=== PATIENT | male | born 1955 | race Caucasian/White ===

== ENCOUNTER 2021-07-08 15:35 | Outpatient (CLI) | payer BC, MEDICARE | END 2021-07-08 15:36 | disposition home or self-care (01) | LOC: LABBT 15:35 | PROVIDERS: ATTEND Thoracic Surgery (Cardiothoracic Vascular Surgery) | DX: Z01.812 Encounter for preprocedural laboratory examination (principal); I25.10 Atherosclerotic heart disease of native coronary artery without angina pectoris; I48.91 Unspecified atrial fibrillation; Z20.822 Contact with and (suspected) exposure to COVID-19 | CPT/HCPCS: 80048; 85027; 86850; 86900; 86901; U0003; U0005 ==

== ENCOUNTER 2021-07-08 16:00 | Inpatient (IN) | payer BC, MEDICARE ==
[2021-07-08 16:47] LABS: Hemoglobin 13.5 g/dL (13.5-17.5); Mean Corpuscular HGB CONC 31.5 g/dL (32.0-36.0); Mean Corpuscular Hemoglobin 26.9 pg (27.0-33.0); Mean Corpuscular Volume 85.4 fl (81.2-95.1); Mean Platelet Volume 9.2 fl (7.4-10.4); Platelet Count 339 10x3/uL (150-450); Red Blood Cell (RBC) Count 5.01 10x6/uL (4.32-5.72); White Blood Cell (WBC) Count 10.4 10x3/uL (3.5-10.5)
[2021-07-08 17:17] LABS: Anion Gap 14 mmol/L (10-20); BUN (Urea Nitrogen) 20 mg/dL (8.4-25.7); Calc. Creatinine Clearance 0 mL/min (70-130); Carbon Dioxide 24 mmol/L (23-31); Chloride 107 mmol/L (98-107); Glucose 173 mg/dL (80-115); Potassium 4.3 mmol/L (3.5-5.1); Sodium 141 mmol/L (136-145)
[2021-07-09 08:34] VITALS: BMI 29.0
[2021-07-09 10:48] LABS: SARS-CoV-2 PCR by NAA Not Detected (NotDetected)
[2021-07-16] MEDS ORDERED: ceFAZolin 2 GM/DEX 5% 100 ML BAG ONE (06:15)
[2021-07-16] MEDS ORDERED: Albumin 5% 500 ML ONE (06:32)
[2021-07-16] MEDS ORDERED: Heparin 10,000 UNITS/1 ML VIAL 30,000 UNITS in Sodium Chloride 0.9% 1,000 ML FS SCH (07:00)
[2021-07-16] MEDS ORDERED: Dexmedetomidine 200 MCG/2 ML VIAL ONE (07:12)
[2021-07-16] MEDS ORDERED: Fentanyl 250 MCG/5 ML VIAL ONE (07:12)
[2021-07-16] MEDS ORDERED: Midazolam HCl 5 mg/5 ml Vial ONE (07:12)
[2021-07-16] MEDS ORDERED: Midazolam HCl 2 mg/2 ml Vial ONE (07:28)
[2021-07-16] MEDS ORDERED: Ondansetron ODT 4 MG TAB ONE (07:28)
[2021-07-16] MEDS ORDERED: Vecuronium 10 MG VIAL ONE (08:01)
[2021-07-16] MEDS ORDERED: Magnesium Sulfate 1 GM/2 ML VIAL ONE (08:01)
[2021-07-16] MEDS ORDERED: Lidocaine 2% PF 100 mg/5 ml Syringe ONE (08:01)
[2021-07-16] MEDS ORDERED: Calcium Chloride 1 GM/10 ML Abboject SYRINGE ONE (08:01)
[2021-07-16] MEDS ORDERED: Protamine Sulfate 250 MG/25 ML VIAL ONE (08:01)
[2021-07-16] MEDS ORDERED: PROPOFOL 200 MG/20 ML VIAL ONE ×2 (08:01)
[2021-07-16] MEDS ORDERED: Ondansetron PF 4 MG/2 ML Vial ONE (08:01)
[2021-07-16] MEDS ORDERED: Glycopyrrolate 0.2 MG/ML 5 ML SYRINGE ONE (08:01)
[2021-07-16] MEDS ORDERED: Lidocaine 1% PF 5 ML VIAL ONE (08:01)
[2021-07-16] MEDS ORDERED: Thrombin 5000 UNITS/5 ML VIAL ONE (08:01)
[2021-07-16] MEDS ORDERED: Nitroglycerin 50 MG/250 ML BOT ONE (08:01)
[2021-07-16] MEDS ORDERED: Potassium Chloride 60 MEQ/30 ML VIAL ONE (08:01)
[2021-07-16] MEDS ORDERED: Cardioplegic Soln 1,000 ML BAG ONE (08:01)
[2021-07-16] MEDS ORDERED: Aminocaproic Acid 5 GM/20 ML VIAL ONE (08:01)
[2021-07-16] MEDS ORDERED: Norepinephrine 4 MG/4 ML VIAL ONE (08:01)
[2021-07-16] MEDS ORDERED: Heparin 30,000 units/30 ml VIAL ONE (08:01)
[2021-07-16] MEDS ORDERED: Dexamethasone 20 MG/5 ML VIAL ONE (08:01)
[2021-07-16] MEDS ORDERED: Sodium Bicarb 50 MEQ/50 ML Abboject 8.4% SYRINGE ONE (08:01)
[2021-07-16] MEDS ORDERED: Heparin 5,000 UNITS/ML VIAL ONE (08:01)
[2021-07-16] MEDS ORDERED: Papaverine 60 MG/2 ML VIAL ONE (08:01)
[2021-07-16] MEDS ORDERED: SUGAMMADEX SODIUM 200 MG/2 ML VIAL ONE (09:14)
[2021-07-16] MEDS ORDERED: Potassium Chloride 20 MEQ/100 ML PREMIX BAG IVPB PRN (11:16)
[2021-07-16] MEDS ORDERED: Post-Op Insulin Drip Protocol IVPB ONE (11:16)
[2021-07-16] MEDS ORDERED: Acetaminophen 325 MG TAB PO PRN (11:16)
[2021-07-16] MEDS ORDERED: Promethazine HCl 25 MG/ML VIAL IM PRN (11:16)
[2021-07-16] MEDS ORDERED: Nitroglycerin 50 MG/250 ML BOT 250 ML IVPB PRN (11:16)
[2021-07-16] MEDS ORDERED: Guaifenesin DM 100-10/5 ML UDCUP PO PRN (11:16)
[2021-07-16] MEDS ORDERED: Mag-Al 1200 mg/1200 mg/30 ML UDCUP PO PRN (11:16)
[2021-07-16] MEDS ORDERED: Bisacodyl 5 MG TAB PO PRN (11:16)
[2021-07-16] MEDS ORDERED: Norepinephrine 8 MG/0.9% NS 250 ML IVPB PRN (11:16)
[2021-07-16] MEDS ORDERED: niCARdipine 25 MG in Sodium Chloride 0.9% 250 ML 250 ML IVPB PRN (11:16)
[2021-07-16] MEDS ORDERED: Hetastarch 6% 500 ML 500 ML IVPB PRN (11:16)
[2021-07-16] MEDS ORDERED: Fentanyl 100 MCG/2 ML VIAL SLOW IVP PRN (11:16)
[2021-07-16] MEDS ORDERED: hydrALAZINE 20 MG/ML VIAL SLOW IVP PRN (11:16)
[2021-07-16] MEDS ORDERED: Morphine 4 MG/ML VIAL SLOW IVP PRN (11:16)
[2021-07-16] MEDS ORDERED: Bisacodyl 10 MG SUPP PR PRN (11:16)
[2021-07-16] MEDS ORDERED: DOPamine 400 MG/D5W 250 ML 250 ML IVPB PRN (11:16)
[2021-07-16] MEDS ORDERED: Dextrose 50% Abboject 50 ML SYRINGE SLOW IVP PRN (11:45)
[2021-07-16] MEDS ORDERED: HUMULIN R 100 UNITS in Sodium Chloride 0.9% 100 ML IVPB SCH (11:45)
[2021-07-16] MEDS ORDERED: Dextrose 5% in Water 1,000 ML IV PRN (11:45)
[2021-07-16] MEDS ORDERED: Lantus 1000 UNITS/10 ML VIAL SC PRN (11:45)
[2021-07-16] MEDS: Lactated Ringer's 1,000 ML IV SCH (12:00)
[2021-07-16] MEDS ORDERED: Naloxone HCl 0.4 mg/ml Vial ONE (12:05)
[2021-07-16 12:21] LABS: #Basophils 0.1 thou/uL (0.0-0.2); #Eosinphils 0.3 thou/uL (0.0-0.7); #Lymphocytes 2.1 thou/uL (1.20-3.40); #Monocytes 1.2 thou/uL (0.11-0.59); #Neutrophils 16.1 thou/uL (1.40-6.50); %Basophils 0.4 % (0.0-1.0); %Eosinophils 1.5 % (0.0-10.0); %Lymphocytes 10.6 % (21.0-51.0); %Monocytes 6.1 % (0.0-10.0); %Neutrophils 81.4 % (42.0-75.0); Hemoglobin 11.8 g/dL (14.0-18.0); Mean Corpuscular HGB CONC 33.1 g/dL (32.0-36.0); Mean Corpuscular Hemoglobin 28.5 pg (27.0-31.0); Mean Corpuscular Volume 86.2 fL (78.0-98.0); Mean Platelet Volume 6.1 fL (7.4-10.4); Platelet Count 275 thou/uL (130-400); Red Blood Cell (RBC) Count 4.14 mill/uL (4.70-6.10); White Blood Cell (WBC) Count 19.7 thou/uL (4.8-10.8)
[2021-07-16] MEDS: Insulin Regular 300 UNITS/3 ML VIAL SC PRN (12:26)
[2021-07-16 12:32] LABS: INR-International Normal Ratio 1.2; Prothrombin Time 15.4 sec (12.0-14.7)
[2021-07-16 12:33] LABS: PTT 34.1 sec (22.9-36.1)
[2021-07-16 12:40] LABS: Anion Gap 11 mmol/L (10-20); BUN (Urea Nitrogen) 22 mg/dL (8.4-25.7); Calc. Creatinine Clearance 65 mL/min (70-130); Carbon Dioxide 23 mmol/L (23-31); Chloride 114 mmol/L (98-107); Glucose 165 mg/dL (80-115); Potassium 4.5 mmol/L (3.5-5.1); Sodium 143 mmol/L (136-145)
[2021-07-16] MEDS: Ondansetron PF 4 MG/2 ML Vial IVP PRN (12:49)
[2021-07-16] MEDS: Fentanyl 100 MCG/2 ML VIAL SLOW IVP PRN ×2 (12:49→20:08)
[2021-07-16] MEDS ORDERED: FLU VACC QS2021-22(65YR UP)/PF 240 MCG/0.7 ML SYRINGE IM ONE (14:45)
[2021-07-16] MEDS: ceFAZolin Sodium/D5W 2 GM in Premix Bag 1 BAG IVPB SCH ×2 (16:13→23:10)
[2021-07-16 17:08] LABS: Hemoglobin 11.3 g/dL (14.0-18.0)
[2021-07-16 17:28] LABS: Potassium 4.2 mmol/L (3.5-5.1)
[2021-07-16] MEDS: Famotidine/PF 20 mg/2ml Vial SLOW IVP SCH (20:04)
[2021-07-16] MEDS: Tamsulosin HCl 0.4 MG CAP PO SCH (20:04)
[2021-07-16] MEDS: Atorvastatin Calcium 20 MG TAB PO SCH (20:04)
[2021-07-16] MEDS: HYDROcodone/Acetaminophen 5/325 mg Tablet PO PRN (23:20)
[2021-07-17] MEDS: Fentanyl 100 MCG/2 ML VIAL SLOW IVP PRN ×2 (00:33→04:18)
[2021-07-17] MEDS: Lactated Ringer's 1,000 ML IV SCH (02:39)
[2021-07-17 04:52] LABS: #Lymphocytes 0.8 thou/uL (1.20-3.40); #Monocytes 0.9 thou/uL (0.11-0.59); #Neutrophils 14.3 thou/uL (1.40-6.50); %Eosinophils 0.1 % (0.0-10.0); %Lymphocytes 4.9 % (21.0-51.0); %Monocytes 5.8 % (0.0-10.0); %Neutrophils 89.1 % (42.0-75.0); Hemoglobin 10.8 g/dL (14.0-18.0); Mean Corpuscular HGB CONC 32.9 g/dL (32.0-36.0); Mean Corpuscular Hemoglobin 28.5 pg (27.0-31.0); Mean Corpuscular Volume 86.7 fL (78.0-98.0); Mean Platelet Volume 6.4 fL (7.4-10.4); Platelet Count 304 thou/uL (130-400); Red Blood Cell (RBC) Count 3.78 mill/uL (4.70-6.10); White Blood Cell (WBC) Count 16.1 thou/uL (4.8-10.8)
[2021-07-17 05:10] LABS: Anion Gap 10 mmol/L (10-20); BUN (Urea Nitrogen) 25 mg/dL (8.4-25.7); Calc. Creatinine Clearance 73 mL/min (70-130); Calcium 9.5 mg/dL (7.8-10.44); Carbon Dioxide 24 mmol/L (23-31); Chloride 114 mmol/L (98-107); Glucose 131 mg/dL (80-115); Potassium 4.1 mmol/L (3.5-5.1); Sodium 144 mmol/L (136-145)
[2021-07-17] MEDS: Levothyroxine Sodium 100 MCG TAB PO SCH (05:59)
[2021-07-17] MEDS: ceFAZolin Sodium/D5W 2 GM in Premix Bag 1 BAG IVPB SCH (05:59)
[2021-07-17] MEDS: HYDROcodone/Acetaminophen 5/325 mg Tablet PO PRN ×4 (06:11→21:01)
[2021-07-17] MEDS: Polyethylene Glycol 3350 17 GM Packet PO SCH (07:10)
[2021-07-17] MEDS: Aspirin 325 MG TAB PO SCH (07:10)
[2021-07-17] MEDS: Famotidine/PF 20 mg/2ml Vial SLOW IVP SCH (07:10)
[2021-07-17] MEDS: Tamsulosin HCl 0.4 MG CAP PO SCH ×2 (07:11→21:10)
[2021-07-17] MEDS: Metoprolol Tartrate 25 MG TAB PO SCH ×2 (07:11→21:10)
[2021-07-17] MEDS: Losartan 25 MG TAB PO SCH (07:11)
[2021-07-17] MEDS ORDERED: Lantus 1000 UNITS/10 ML VIAL SC SCH ×3 (07:15→21:00)
[2021-07-17] MEDS: Ondansetron PF 4 MG/2 ML Vial IVP PRN (07:46)
[2021-07-17] MEDS ORDERED: Amlodipine 5 MG TAB PO SCH (09:00)
[2021-07-17] MEDS ORDERED: Olmesartan 5 MG TAB PO SCH (09:00)
[2021-07-17] MEDS: Insulin Regular 300 UNITS/3 ML VIAL SC PRN ×3 (11:58→21:03)
[2021-07-17] MEDS ORDERED: Nitroglycerin 0.4 MG TAB (25 Tab Bottle) SL PRN (18:24)
[2021-07-17] MEDS ORDERED: Zolpidem Tartrate 5 MG TAB PO PRN (18:24)
[2021-07-17] MEDS ORDERED: Dextrose 50% Abboject 50 ML SYRINGE SLOW IVP PRN (19:15)
[2021-07-17] MEDS ORDERED: HUMULIN R 100 UNITS in Sodium Chloride 0.9% 100 ML IVPB SCH (19:15)
[2021-07-17] MEDS ORDERED: Lantus 1000 UNITS/10 ML VIAL SC PRN (19:15)
[2021-07-17] MEDS ORDERED: Dextrose 5% in Water 1,000 ML IV PRN (19:15)
[2021-07-17] MEDS: Lantus 1000 UNITS/10 ML VIAL SC SCH (21:02)
[2021-07-17] MEDS: Atorvastatin Calcium 20 MG TAB PO SCH (21:10)
[2021-07-17] MEDS: Famotidine 20 MG TAB PO SCH (21:10)
[2021-07-18] MEDS: HYDROcodone/Acetaminophen 5/325 mg Tablet PO PRN ×3 (02:18→20:29)
[2021-07-18 04:46] LABS: Anion Gap 12 mmol/L (10-20); BUN (Urea Nitrogen) 24 mg/dL (8.4-25.7); Calc. Creatinine Clearance 80 mL/min (70-130); Calcium 9.6 mg/dL (7.8-10.44); Carbon Dioxide 20 mmol/L (23-31); Chloride 112 mmol/L (98-107); Glucose 142 mg/dL (80-115); Potassium 4.6 mmol/L (3.5-5.1); Sodium 139 mmol/L (136-145)
[2021-07-18] MEDS: Levothyroxine Sodium 100 MCG TAB PO SCH (05:39)
[2021-07-18] MEDS: Insulin Regular 300 UNITS/3 ML VIAL SC PRN ×4 (05:40→20:29)
[2021-07-18 09:23] LABS: #Lymphocytes 1.2 thou/uL (1.20-3.40); #Monocytes 1.6 thou/uL (0.11-0.59); #Neutrophils 16.5 thou/uL (1.40-6.50); %Basophils 0.1 % (0.0-1.0); %Eosinophils 0.2 % (0.0-10.0); %Lymphocytes 6.4 % (21.0-51.0); %Monocytes 8.3 % (0.0-10.0); %Neutrophils 85.1 % (42.0-75.0); Hemoglobin 11.4 g/dL (14.0-18.0); Mean Corpuscular HGB CONC 33.1 g/dL (32.0-36.0); Mean Corpuscular Hemoglobin 28.9 pg (27.0-31.0); Mean Corpuscular Volume 87.5 fL (78.0-98.0); Mean Platelet Volume 6.4 fL (7.4-10.4); Platelet Count 296 thou/uL (130-400); Red Blood Cell (RBC) Count 3.94 mill/uL (4.70-6.10); White Blood Cell (WBC) Count 19.4 thou/uL (4.8-10.8)
[2021-07-18] MEDS: Potassium Chloride 10 MEQ TAB PO SCH (09:48)
[2021-07-18] MEDS: Famotidine 20 MG TAB PO SCH ×2 (09:48→20:27)
[2021-07-18] MEDS: Aspirin 325 MG TAB PO SCH (09:48)
[2021-07-18] MEDS: Polyethylene Glycol 3350 17 GM Packet PO SCH (09:49)
[2021-07-18] MEDS: Losartan 25 MG TAB PO SCH (09:49)
[2021-07-18] MEDS: Tamsulosin HCl 0.4 MG CAP PO SCH ×2 (09:49→20:28)
[2021-07-18] MEDS: Metoprolol Tartrate 25 MG TAB PO SCH ×2 (09:49→20:28)
[2021-07-18] MEDS: Furosemide 40 MG TAB PO SCH (09:49)
[2021-07-18] MEDS: Lantus 1000 UNITS/10 ML VIAL SC SCH ×2 (09:49→20:28)
[2021-07-18] MEDS ORDERED: Amiodarone 450 MG in Dextrose 5% in Water 250 ML IVPB SCH (11:45)
[2021-07-18] MEDS: Atorvastatin Calcium 20 MG TAB PO SCH (20:27)
[2021-07-19] MEDS: Levothyroxine Sodium 100 MCG TAB PO SCH (06:07)
[2021-07-19] MEDS: HYDROcodone/Acetaminophen 5/325 mg Tablet PO PRN ×3 (06:21→22:57)
[2021-07-19] MEDS: Aspirin 325 MG TAB PO SCH (10:00)
[2021-07-19] MEDS: Famotidine 20 MG TAB PO SCH ×2 (10:00→21:34)
[2021-07-19] MEDS: Furosemide 40 MG TAB PO SCH (10:00)
[2021-07-19] MEDS: Tamsulosin HCl 0.4 MG CAP PO SCH ×2 (10:00→21:35)
[2021-07-19] MEDS: Lantus 1000 UNITS/10 ML VIAL SC SCH ×2 (10:00→21:37)
[2021-07-19] MEDS: Losartan 25 MG TAB PO SCH (10:00)
[2021-07-19] MEDS: Potassium Chloride 10 MEQ TAB PO SCH (10:00)
[2021-07-19] MEDS: Polyethylene Glycol 3350 17 GM Packet PO SCH (10:00)
[2021-07-19] MEDS: Metoprolol Tartrate 25 MG TAB PO SCH ×2 (10:00→21:35)
[2021-07-19] MEDS: Insulin Regular 300 UNITS/3 ML VIAL SC PRN ×2 (11:33→21:36)
[2021-07-19] MEDS: Amiodarone 200 MG TAB PO SCH (21:34)
[2021-07-19] MEDS: Atorvastatin Calcium 20 MG TAB PO SCH (21:34)
[2021-07-20] MEDS: Levothyroxine Sodium 100 MCG TAB PO SCH (06:21)
[2021-07-20] MEDS: Aspirin 325 MG TAB PO SCH (09:48)
[2021-07-20] MEDS: Potassium Chloride 10 MEQ TAB PO SCH (09:48)
[2021-07-20] MEDS: Losartan 25 MG TAB PO SCH (09:48)
[2021-07-20] MEDS: Furosemide 40 MG TAB PO SCH (09:48)
[2021-07-20] MEDS: Famotidine 20 MG TAB PO SCH ×2 (09:48→21:22)
[2021-07-20] MEDS: Metoprolol Tartrate 25 MG TAB PO SCH ×2 (09:48→21:21)
[2021-07-20] MEDS: Tamsulosin HCl 0.4 MG CAP PO SCH ×2 (09:48→21:20)
[2021-07-20] MEDS: Amiodarone 200 MG TAB PO SCH ×2 (09:48→21:21)
[2021-07-20] MEDS: Lantus 1000 UNITS/10 ML VIAL SC SCH ×2 (09:49→21:24)
[2021-07-20] MEDS: Polyethylene Glycol 3350 17 GM Packet PO SCH (09:49)
[2021-07-20] MEDS: Insulin Regular 300 UNITS/3 ML VIAL SC PRN ×3 (12:12→21:25)
[2021-07-20] MEDS: Atorvastatin Calcium 20 MG TAB PO SCH (21:21)
[2021-07-21] MEDS: HYDROcodone/Acetaminophen 5/325 mg Tablet PO PRN (02:02)
[2021-07-21] MEDS: Levothyroxine Sodium 100 MCG TAB PO SCH (05:48)
[2021-07-21] MEDS: Famotidine 20 MG TAB PO SCH (10:46)
[2021-07-21] MEDS: Aspirin 325 MG TAB PO SCH (10:46)
[2021-07-21] MEDS: Furosemide 40 MG TAB PO SCH (10:46)
[2021-07-21] MEDS: Amiodarone 200 MG TAB PO SCH (10:46)
[2021-07-21] MEDS: Tamsulosin HCl 0.4 MG CAP PO SCH (10:46)
[2021-07-21] MEDS: Potassium Chloride 10 MEQ TAB PO SCH (10:47)
[2021-07-21] MEDS: Metoprolol Tartrate 25 MG TAB PO SCH (10:47)
[2021-07-21] MEDS: Losartan 25 MG TAB PO SCH (10:47)
[2021-07-21] MEDS: Polyethylene Glycol 3350 17 GM Packet PO SCH (10:48)
[2021-07-21] MEDS: Lantus 1000 UNITS/10 ML VIAL SC SCH (10:48)
[2021-07-21] MEDS: Insulin Regular 300 UNITS/3 ML VIAL SC PRN (10:53)
[2021-07-21 11:04] VITALS: BP 150/68; TEMP 98
[2021-07-21] MEDS ORDERED: Amiodarone 200 MG TAB PO SCH (21:00)
== END 2021-07-21 13:30 | disposition home or self-care (01) | DRG 234 ==
LOC: SURG A 07-16 06:00 → CCU 07-16 10:49 → 2NO 07-17 19:30
PROVIDERS: ADMIT Thoracic Surgery (Cardiothoracic Vascular Surgery); ATTEND Thoracic Surgery (Cardiothoracic Vascular Surgery)
PROC: 021209W Bypass Coronary Artery, Three Arteries from Aorta with Autologous Venous Tissue, Open Approach (ICD-10-PCS; principal; 2021-07-16)
PROC: 02580ZZ Destruction of Conduction Mechanism, Open Approach (ICD-10-PCS; 2021-07-16)
PROC: 02100Z9 Bypass Coronary Artery, One Artery from Left Internal Mammary, Open Approach (ICD-10-PCS; 2021-07-16)
PROC: 06BQ0ZZ Excision of Left Saphenous Vein, Open Approach (ICD-10-PCS; 2021-07-16)
PROC: 02L70CK Occlusion of Left Atrial Appendage with Extraluminal Device, Open Approach (ICD-10-PCS; 2021-07-16)
PROC: 5A1221Z Performance of Cardiac Output, Continuous (ICD-10-PCS; 2021-07-16)
DX: I25.10 Atherosclerotic heart disease of native coronary artery without angina pectoris (principal); I48.92 Unspecified atrial flutter; Z20.822 Contact with and (suspected) exposure to COVID-19; E11.9 Type 2 diabetes mellitus without complications; I10 Essential (primary) hypertension; E78.5 Hyperlipidemia, unspecified; K21.9 Gastro-esophageal reflux disease without esophagitis; E03.9 Hypothyroidism, unspecified; I48.0 Paroxysmal atrial fibrillation; Z28.21 Immunization not carried out because of patient refusal; Z79.899 Other long term (current) drug therapy; Z79.01 Long term (current) use of anticoagulants; Z79.890 Hormone replacement therapy; Z82.49 Family history of ischemic heart disease and other diseases of the circulatory system; Z82.3 Family history of stroke; Z87.891 Personal history of nicotine dependence; Z88.2 Allergy status to sulfonamides; Z79.4 Long term (current) use of insulin; Z01.812 Encounter for preprocedural laboratory examination
CPT/HCPCS: 36415; 36416; 36430; 71045; 80048; 85025; 85027; 85610; 85730; 86850; 86900; 86901; 93005; 93010; 93798; 97139; C1776; J1100; J1642; J1644; J1815; J2001; J2250; J2405; J2440; J2704; J2720; J3010; J3370; J3475; J3480; J3490; J7120; P9045; Q0162; S0017; S0028; U0003; U0005

== ENCOUNTER 2021-07-14 09:48 | Outpatient (CLI) | payer BC, MEDICARE ==
[2021-07-14 10:46] LABS: Hemoglobin 13.4 g/dL (13.5-17.5); Mean Corpuscular HGB CONC 31.8 g/dL (32.0-36.0); Mean Corpuscular Hemoglobin 26.9 pg (27.0-33.0); Mean Corpuscular Volume 84.6 fl (81.2-95.1); Mean Platelet Volume 8.7 fl (7.4-10.4); Platelet Count 352 10x3/uL (150-450); RBC Distribution Width 15.4 % (11.5-14.5); Red Blood Cell (RBC) Count 4.99 10x6/uL (4.32-5.72); White Blood Cell (WBC) Count 11.3 10x3/uL (3.5-10.5)
[2021-07-14 10:50] LABS: Anion Gap 14 mmol/L (10-20); BUN (Urea Nitrogen) 23 mg/dL (8.4-25.7); Calc. Creatinine Clearance 0 mL/min (70-130); Calcium 10.1 mg/dL (7.8-10.44); Carbon Dioxide 21 mmol/L (23-31); Chloride 112 mmol/L (98-107); Glucose 146 mg/dL (80-115); Potassium 4.8 mmol/L (3.5-5.1); Sodium 142 mmol/L (136-145)
[2021-07-14 22:25] LABS: SARS-CoV-2 PCR by NAA Not Detected (NotDetected)
== END 2021-07-14 09:49 | disposition home or self-care (01) ==
LOC: LABBT 09:48
PROVIDERS: ATTEND Thoracic Surgery (Cardiothoracic Vascular Surgery)
DX: Z01.812 Encounter for preprocedural laboratory examination (principal); Z20.822 Contact with and (suspected) exposure to COVID-19; I25.10 Atherosclerotic heart disease of native coronary artery without angina pectoris; I48.91 Unspecified atrial fibrillation
CPT/HCPCS: 80048; 85027; 86850; 86900; 86901; U0003; U0005